=== PATIENT | female | born 1955 | race Two or more races ===

== ENCOUNTER 2020-05-03 13:34 | Outpatient (CLI) | payer OTHER | END 2020-05-03 14:30 | disposition home or self-care (01) | LOC: OFIC 805 13:34 | PROVIDERS: ATTEND Otolaryngology Otology & Neurotology | DX: H60.543 Acute eczematoid otitis externa, bilateral (principal); L50.8 Other urticaria; H92.03 Otalgia, bilateral; H61.21 Impacted cerumen, right ear ==

== ENCOUNTER 2020-05-31 13:36 | Outpatient (CLI) | payer OTHER | END 2020-05-31 14:20 | disposition home or self-care (01) | LOC: OFIC 805 13:36 | PROVIDERS: ATTEND Otolaryngology Otology & Neurotology | DX: H60.8X3 Other otitis externa, bilateral (principal); H61.21 Impacted cerumen, right ear ==

== ENCOUNTER 2020-11-21 15:10 | Outpatient (CLI) | payer OTHER | END 2020-11-21 15:42 | disposition home or self-care (01) | LOC: OFIC 805 15:10 | PROVIDERS: ATTEND Otolaryngology Otology & Neurotology | DX: H60.543 Acute eczematoid otitis externa, bilateral (principal); L50.8 Other urticaria; H61.22 Impacted cerumen, left ear ==